=== PATIENT | male | born 1990 ===

== ENCOUNTER 2021-02-27 16:23 | Emergency (ER) | payer MEDICAID ==
[~2021-02-27] VITALS: Ht 180.3 cm; Wt 71.0 kg
[2021-02-27 17:08] VITALS: BP 107/70
--- NOTE | 2021-02-27 17:11 | NUR ---
EKG IN TRIAGE
[2021-02-27 17:45] LABS: ALBUMIN 2.7 g/dL (3.4-5.0); ANION GAP 3 mmol/L (5-15); CALCIUM 7.9 mg/dL (8.5-10.1); CHLORIDE 111 mmol/L (98-107)
[2021-02-27 17:46] LABS: MEAN CORPUSCULAR HEMOGLOBIN 29.2 pg (27.5-34.5); MEAN CORPUSCULAR HGB CONC 33.5 g/dL (33.2-36.2); MEAN PLATELET VOLUME 8.9 fL (7.4-10.4); PLATELET COUNT 263 x10^3/uL (130-400); RED BLOOD COUNT 5.54 x10^6/uL (4.38-5.82); RED CELL DISTRIBUTION WIDTH 13.2 % (9.4-14.8)
[2021-02-27 17:49] LABS: ALANINE AMINOTRANSFERASE 23 U/L (12-78); ALKALINE PHOSPHATASE 54 U/L (45-117); BILIRUBIN,TOTAL 0.5 mg/dL (0.2-1.0); CREATININE 0.91 mg/dL (0.7-1.3); TOTAL PROTEIN 5.5 g/dL (6.4-8.2)
[2021-02-27 18:17] LABS: BANDS%(MANUAL) 2 % (0-7); LYMPHS% (MANUAL) 12 % (22-44); MONOS% (MANUAL) 6 % (2-9); SEGS% (MANUAL) 80 % (42-75)
[2021-02-27 18:19] LABS: <PLATELET ESTIMATE> ADEQUATE; <PLT MORPHOLOGY> NORMAL PLT MORPH
--- NOTE | 2021-02-27 18:35 | NUR ---
PT AMBULATORY TO ROOM FROM GLORIA Strauss STEADY GAIT.
--- NOTE | 2021-02-27 19:01 | NUR ---
REPORT TO JIMI KHAN.
--- NOTE | 2021-02-27 19:46 | NUR ---
PT PROVIDED WITH JUICE AND CRACKERS. TO BE DISCAHRGED SHORTLY.
--- NOTE | 2021-02-27 20:34 | NUR ---
Patient/Caregiver given discharge instructions and they have confirmed that they understand the instructions. Patient ambulatory with steady gait. NAD, all questions answered appropriately, denies additional needs at this time. No personal belongings left in room after discharge.
== END 2021-02-27 20:35 | disposition home or self-care (01) ==
LOC: ED 17:00
DX: R55 Syncope and collapse (principal); R73.9 Hyperglycemia, unspecified; R93.0 Abnormal findings on diagnostic imaging of skull and head, not elsewhere classified
CPT/HCPCS: 36415; 70450; 80053; 85025; 93005; 99285